=== PATIENT | male | born 1985 ===

== ENCOUNTER 2017-10-24 09:20 | Emergency (ER) | payer BC ==
[2017-10-24 09:23] VITALS: BMI 23.5
[2017-10-24] MEDS ORDERED: Iohexol 240 (50 ml) PO ONE (09:40)
[2017-10-24] MEDS ORDERED: Sodium Chloride 0.9% 1,000 ML IV STA (09:40)
--- NOTE | 2017-10-24 09:45 | ED PDOC ---
HPI: Abdomen Time Seen by Provider: 10/24/17 09:35 Chief Complaint (Provider): Abd pain History Per: Patient History/Exam Limitations: no limitations Onset/Duration Of Symptoms: Days (yesterday) Outside of [place] travel?: No Additional Complaint(s): Pt. with abd pain R lower. Constant. Pt. with no nausea, vomit, diarrhea, weakness, headaches, cough, new food, testicular pain. No dysuria. No back pain. Pain on moving around and gone when sitting still. Past Medical History Reviewed: Nursing Documentation, Vital Signs Vital Signs: Last Vital Signs Temp 98.9 F 10/24/17 17:55 Pulse 72 10/24/17 17:55 Resp 19 10/24/17 17:55 BP 118/79 10/24/17 17:55 Pulse Ox 99 10/24/17 17:55 - Medical History PMH: No Chronic Diseases - Surgical History Surgical History: No Surg Hx - Family History Family History: States: Unknown Family Hx - Social History Alcohol: None Drugs: Denies - Home Medications Home Medications: Ambulatory Orders Medication Instructions Recorded Ibuprofen [Motrin] 600 mg PO TID 7 Days tab 10/24/17 - Allergies Allergies/Adverse Reactions: Allergies Allergy/AdvReac Type Severity Reaction Status Date / Time No Known Allergies Allergy Verified 10/24/17 09:39 Review of Systems ROS Statement: Except As Marked, All Systems Reviewed And Found Negative Gastrointestinal: Positive for: Abdominal Pain Physical Exam - Reviewed Nursing Documentation Reviewed: Yes Vital Signs Reviewed: Yes - Physical Exam Appears: Positive for: Non-toxic, No Acute Distress Head Exam: Positive for: ATRAUMATIC, NORMAL INSPECTION, NORMOCEPHALIC Skin: Positive for: Normal Color, Warm, DRY Eye Exam: Positive for: EOMI, Normal appearance, PERRL ENT: Positive for: Normal ENT Inspection Neck: Positive for: Normal, Painless ROM Cardiovascular/Chest: Positive for: Regular Rate, Rhythm Respiratory: Positive for: CNT, Normal Breath Sounds Gastrointestinal/Abdominal: Positive for: Soft, Tenderness (RLQ ). Negative for : Distended, Guarding Back: Positive for: Normal Inspection. Negative for: L CVA Tenderness, R CVA Tenderness Extremity: Positive for: Normal ROM. Negative for: Tenderness, Pedal Edema Neurologic/Psych: Positive for: Alert, Oriented - Laboratory Results Result Diagrams: 10/24/17 09:49 10/24/17 09:49 Interpretation Of Abn Labs: no acute Urine dip results: Negative for: Leukocyte Esterase, Nitrate - ECG O2 Sat by Pulse Oximetry: 97 Pulse Ox Interpretation: Normal - CT Scan/US ct Other Rad Studies (CT/US): Read By Radiologist Other Rad Interpretation: mass ascending colon area - Progress ED Course And Treament: 1756: Surgery resident saw pt. Discussed with Dr. Marie. Will dc home. Fu with Dr. Marie and GI. Stable. Pain free. Tolerated PO. AAOx3. Disposition - Clinical Impression Clinical Impression: Abdominal pain, Abdominal mass - Patient ED Disposition Is Patient to be Admitted: No Counseled Patient/Family Regarding: Studies Performed, Diagnosis, Need For Followup, Rx Given - Disposition Referrals: [facility] [Outside] - 10/25/17 Mitch Marie MD [Staff Provider] - 10/25/17 Lee Bermudez MD [Medical Doctor] - 10/25/17 Disposition: Routine/Home Disposition Time: 15:57 Condition: STABLE Additional Instructions: Return if not better in 3 days. See the specialists in 3 days without fail. You have a mass in your colon area that needs evaluation. Prescriptions: Ibuprofen [Motrin] 600 mg PO TID 7 Days tab Instructions: Acute Abdomen (Belly Pain), Adult (DC) Forms: [facility] (Tongan), [facility] ED School/Work Excuse
[2017-10-24] MEDS ORDERED: Iohexol 240 (50 ml) ONE (09:57)
[2017-10-24 10:03] LABS: BASO % 0.6 % (0.0-2.0); EOS % 0.5 % (0.0-4.0); HEMOGLOBIN 14.2 g/dL (12.0-18.0); LYMPH # 1.1 K/uL (1.0-4.3); LYMPH % 16.4 % (20.0-40.0); MEAN CELL VOLUME 84.4 fl (80.0-94.0); MEAN CORPUSCULAR HEMOGLOBIN 28.3 pg (27.0-31.0); MEAN CORPUSCULAR HGB CONC 33.5 g/dL (33.0-37.0); MEAN PLATELET VOLUME 8.4 fl (7.2-11.7); MONO # 0.7 K/uL (0.0-0.8); MONO % 9.9 % (0.0-10.0); NEUT % 72.6 % (50.0-75.0); RBC 5.02 Mil/uL (4.40-5.90); RED CELL DISTRIBUTION WIDTH 13.8 % (11.5-14.5); WHITE BLOOD COUNT 6.8 K/uL (4.8-10.8)
[2017-10-24 10:14] LABS: ALB/GLOB RATIO 1.4 (1.0-2.1); ALBUMIN 4.6 g/dL (3.5-5.0); ALT/SGPT 43 U/L (21-72); AST/SGOT 33 U/L (17-59); BLOOD UREA NITROGEN 11 mg/dl (9-20); CALCIUM 9.4 mg/dL (8.4-10.2); GFR AFRICAN-AMERICAN > 60; GFR NON-AFRICAN AMERICAN > 60
[2017-10-24] MEDS ORDERED: Iohexol 300 100 ML IJ ONE (12:20)
--- NOTE | 2017-10-24 12:56 | CT ---
PROCEDURE: CT Abdomen and Pelvis with contrast HISTORY: Abdominal pain COMPARISON: None. TECHNIQUE: Contrast dose: 95 cc Omnipaque 300 Radiation dose: Total exam DLP = 252.97 mGy-cm. This CT exam was performed using one or more of the following dose reduction techniques: Automated exposure control, adjustment of the mA and/or kV according to patient size, and/or use of iterative reconstruction technique. FINDINGS: LOWER THORAX: Unremarkable. LIVER: Unremarkable. No gross lesion or ductal dilatation. GALLBLADDER AND BILE DUCTS: Unremarkable. PANCREAS: Unremarkable. No gross lesion or ductal dilatation. SPLEEN: Unremarkable. ADRENALS: Unremarkable. No mass. KIDNEYS AND URETERS: Unremarkable. No hydronephrosis. No solid mass. VASCULATURE: Unremarkable. No aortic aneurysm. BOWEL: Soft tissue mass medial wall of the proximal ascending colon finding most likely to represent adherent fecal debris. This does not appear to be associated with an inflammatory process or other pathologic. APPENDIX: Normal appendix. PERITONEUM: Unremarkable. No free fluid. No free air. LYMPH NODES: Unremarkable. No enlarged lymph nodes. BLADDER: Unremarkable. REPRODUCTIVE: Unremarkable. BONES: No acute fracture. OTHER FINDINGS: None. IMPRESSION: Soft tissue mass likely adherent fecal debris to the medial wall of the ascending colon. The findings can be visualized on sagittal series 601 30 -1949 and axial series 2, images 40 06-1940 Otherwise unremarkable study.
[2017-10-24 17:55] VITALS: BP 118/79; PULSE 72; RESP 19; TEMP 98.9
[2017-10-24 17:59] VITALS: O2SAT 97
--- NOTE | 2017-10-24 18:52 | CP.PCM.CON ---
History of Present Illness - History of Present Illness History of Present Illness: 32M with no significant PMHx presents to [facility] ED with complaints of abdominal pain. Patient reports pain began yesterday afternoon. He denies fever/chills, nausea/vomiting, diarrhea. Patient states he had a very large [employer] meal 2 days prior and that he does not usually eat this way. He reports developing this pain day after having this large meal. While in ED patient had a bowel movement. At time of examination patient reports feeling much better. Requesting food. States pain had improved drastically since admission. PMHx: as stated above PSurgHx: none Allergies: NKDA Soc Hx: admits to smoking marijuana daily, denies EtOH use, denies smoking cigarettes Fam Hx: denies history of colon CA Review of Systems - Review of Systems Review of Systems: 12 pt ROS carried out, unremarkable, except as stated in HPI Past Patient History - Infectious Disease Hx of Infectious Diseases: None - Past Social History Alcohol: None Drugs: Denies - PSYCHIATRIC Hx Substance Use: No - SURGICAL HISTORY Hx Surgeries: No - ANESTHESIA Hx Anesthesia: No Meds Home Medications: Home Medication List Medication Instructions Recorded Confirmed Type Ibuprofen [Motrin] 600 mg PO TID 7 Days tab 10/24/17 Rx Allergies/Adverse Reactions: Allergies Allergy/AdvReac Type Severity Reaction Status Date / Time No Known Allergies Allergy Verified 10/24/17 09:39 Physical Exam - Constitutional Appears: No Acute Distress - Head Exam Head Exam: NORMOCEPHALIC - Eye Exam Eye Exam: EOMI, Normal appearance - ENT Exam ENT Exam: Mucous Membranes Moist - Respiratory Exam Respiratory Exam: NORMAL BREATHING PATTERN - Cardiovascular Exam Cardiovascular Exam: +S1, +S2 - GI/Abdominal Exam GI & Abdominal Exam: Soft, Tenderness. absent: Distended, Firm, Guarding, Hernia, Rebound, Rigid Additional comments: mild RLQ tenderness on palpation - Extremities Exam Extremities exam: Positive for: normal inspection - Neurological Exam Neurological exam: Alert, Oriented x3 - Skin Skin Exam: Dry, Intact, Warm Results - Vital Signs Recent Vital Signs: Last Vital Signs Temp 98.9 F 10/24/17 17:55 Pulse 72 10/24/17 17:55 Resp 19 10/24/17 17:55 BP 118/79 10/24/17 17:55 Pulse Ox 97 10/24/17 18:01 - Labs Result Diagrams: 10/24/17 09:49 10/24/17 09:49 Labs: Laboratory Results - last 24 hr 10/24/17 10/24/17 09:49 09:49 WBC 6.8 RBC 5.02 Hgb 14.2 Hct 42.4 MCV 84.4 MCH 28.3 MCHC 33.5 RDW 13.8 Plt Count 210 MPV 8.4 Neut % (Auto) 72.6 Lymph % (Auto) 16.4 L Butler % (Auto) 9.9 Eos % (Auto) 0.5 Baso % (Auto) 0.6 Neut # (Auto) 5.0 Lymph # (Auto) 1.1 Butler # (Auto) 0.7 Eos # (Auto) 0.0 Baso # (Auto) 0.0 Sodium 143 Potassium 3.9 Chloride 104 Carbon Dioxide 23 Anion Gap 20 BUN 11 Creatinine 0.8 Est GFR ( Amer) > 60 Est GFR (Non-Af Amer) > 60 Random Glucose 97 Calcium 9.4 Total Bilirubin 0.5 AST 33 ALT 43 Alkaline Phosphatase 61 Total Protein 7.9 Albumin 4.6 Globulin 3.2 Albumin/Globulin Ratio 1.4 Assessment & Plan - Assessment and Plan (Free Text) Assessment: 32M with abdominal pain Plan: No acute surgical intervention needed at this present time Follow up as outpatient Will need gastroenterology follwo up Recommend colonoscopy D/w Dr. Frank GARNICA PGY2
== END 2017-10-24 18:17 | disposition home or self-care (01) ==
LOC: H.ER 09:20
DX: R10.31 Right lower quadrant pain (principal); R19.00 Intra-abdominal and pelvic swelling, mass and lump, unspecified site
CPT/HCPCS: 74177; 80053; 85025; 96360; 99283; J7040; Q9966; Q9967